=== PATIENT | male | born 2000 | race African-American/Black ===

== ENCOUNTER 2021-06-18 16:23 | Emergency (ER) | payer OTHER ==
[~2021-06-18] VITALS: Ht 188 cm; Wt 92.1 kg
[2021-06-18 16:24] VITALS: BP 134/81
[2021-06-18] MEDS ORDERED: FLUORESCEIN OPHTH 1 MG STRIP OS ONE (17:40)
[2021-06-18] MEDS ORDERED: PRED1SUS30 OP (18:10)
[2021-06-18] MEDS ORDERED: ARTISOL2 OS (18:10)
== END 2021-06-18 18:40 | disposition home or self-care (01) ==
LOC: M ED 16:23
DX: H10.212 Acute toxic conjunctivitis, left eye (principal); T54.91XA Toxic effect of unspecified corrosive substance, accidental (unintentional), initial encounter; Y92.89 Other specified places as the place of occurrence of the external cause; Y93.9 Activity, unspecified; Y99.0 Civilian activity done for income or pay